=== PATIENT | female | born 1995 | race Caucasian/White ===

== ENCOUNTER 2024-03-01 13:04 | Outpatient (AMB) | payer OTHER, SELFPAY ==
--- NOTE | 2024-03-01 13:11 | A.OFFPC_ITS ---
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 Intake Note: New patient visit Allergies No Known Allergies Allergy (Verified 03/01/24 13:12) Medication List - Last Reconciled 03/01/24 by Hollie Martinez PA-C minoxidil 2.5 mg PO BID Tobacco use date assessed: 03/01/24 Dental Screening Dental Screen Date: 03/01/24 Did you have a dental visit in the last 12 months?: Yes Did you have a dental problem in the last 6 months where you did not have access to dental care?: No Was dental information given to patient?: Patient has dentist HPI 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 In the past year and a half, she has experienced a sensation of needing to crack her knees multiple times a day to alleviate discomfort. This discomfort is described as painful only when the knees need to crack or pop, but there is no pain with normal walking. Both knees are affected equally, though swelling or redness is absent. Occasionally, there is a report of the knees feeling like they might give out, but this is infrequent. The patient has no history of trauma to the knees or other inciting events and denies stiffness upon waking. No tick bites . The patient uses topical minoxidil for alopecia, a diagnosis confirmed by dermatology. There is no report of other chronic medical conditions or significant family history of similar musculoskeletal issues beyond her mother's arthritis. Her PHQ-9 is a 6 and her anxiety screening is positive. She states that this is not really bother her but at times she does feel tired. 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 Appears stated age. Cardiac: RRR, no murmurs Lungs: clear, equal breath sounds Abdomen: soft, nontender, no CVA tenderness Extremities: no edema, knees examined with no swelling or redness, stable with no pain during anterior and posterior draw test Neuro: alert, oriented x3, mood appropriate [facility] Surgical History (Updated 03/01/24 @ 13:23 by Lesia Lobato CMA) H/O wisdom tooth extraction H/O breast surgery Family History (Updated 03/01/24 @ 13:23 by Lesia Lobato CMA) Other Substance abuse Social History Housing: Apartment Patient Tobacco Use Status: Never used Tobacco e-Cigarette/Vaping Use: Never Used Second Hand Smoke Exposure: No service: No Current occupational status: employed 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 72177 - PHQ-9 Billing: Patient declined-do not bill Source: Developed by Drs. Bernard Mcgee, Filomena Butler, Cm Graff and colleagues, with an educational lópez from [employer]. Thrive Questionnaire I am a: Patient What is your living situation today?: I have a steady place to live Within the past 12 months, did the food you bought not last and you didn't have the money to get more?: Sometimes True Within the past 12 months, did you worry whether your food would run out before you got money to buy more?: Sometimes True Do you have trouble paying for medicines?: No Do you have trouble getting transportation to medical appointments?: No Do you have trouble paying your heating and electricity bill?: Yes Do you have trouble taking care of your child, family member or friend?: No Do you have trouble with day-to-day activities such as bathing, preparing meals, shopping, managing finances, etc.?: No Are you currently unemployed and looking for a job?: No Are you interested in more education?: Yes Please select the resources that you would like help with: None Currently or been in a relationship where the following occur: No concerns reported THRIVE Score: 3 AUDIT C Alcohol Use Questionnaire (AUDIT-C) 1. How often do you have a drink containing alcohol?: 2-4 times a month 2. How many drinks containing alcohol do you have on a typical day when you are drinking?: 1 or 2 3. How often do you have six or more drinks on one occasion?: Never Total Score: 2 Score Reviewed/Action Taken: Yes ELEUTERIO-7 AMB Questionnaire ELEUTERIO-7 Feeling nervous, anxious, or on edge: 2 = More than half the days Not being able to stop or control worryin = More than half the days Worrying too much about different things: 1 = Several days Trouble relaxin = Several days Being so restless that it is hard to sit still: 1 = Several days Becoming easily annoyed or irritable: 1 = Several days Feeling afraid as if something awful might happen: 1 = Several days Total ELEUTERIO-7 score (0-4 normal; 5-9 mild; 10-14 moderate; 15-21 severe): 9 Source: Developed by Drs. Bernard Mcgee, Filomena Butler, Cm Graff and colleagues, with an educational lópez from [employer]. ELEUTERIO-7 Assessment Billing ELEUTERIO-7 Assessment Tool: ELEUTERIO-7 Assessment 85588 Physical exam (Primary Care) PHQ-9: PHQ-9 Score PHQ-9: Total score 6 03/01/24 13:13 Currently or been in a relationship where the following occur: No concerns reported Coding Level of Care Code New Pt Level 3 (63225) Diagnoses Bilateral knee pain M25.561; M25.562 Additional Codes ELUETERIO-7 Assessment Billing - ELEUTREIO-7 Assessment Tool: ELEUTERIO-7 Assessment 29613 ([id number]) Assessment & Plan Assessment & Plan (1) Bilateral knee pain: Code(s): M25.561 - Pain in right knee; M25.562 - Pain in left knee Category: Medical Plan . Orders: Orders Complete Blood Count Auto Diff Today M25.561 - Pain in right knee, M25.562 - Pain in left knee, Z00.00 - Encounter for general adult medical examination without abnormal findings Lipid Panel Today M25.561 - Pain in right knee, M25.562 - Pain in left knee, Z00.00 - Encounter for general adult medical examination without abnormal findings TSH reflex Free T4 Today M25.561 - Pain in right knee, M25.562 - Pain in left knee, Z00.00 - Encounter for general adult medical examination without abnormal findings XR knee LT 2V Today M25.561 - Pain in right knee, M25.562 - Pain in left knee XR knee RT 2V Today M25.561 - Pain in right knee, M25.562 - Pain in left knee Comprehensive Kenneth. Panel Fast Today M25.561 - Pain in right knee, M25.562 - Pain in left knee, Z00.00 - Encounter for general adult medical examination without abnormal findings
[2024-03-01 13:23] VITALS: BP 112/74; PULSE 71; O2SAT 95; BMI 27.3
== END 2024-03-01 13:47 | disposition home or self-care (01) ==
PROVIDERS: Visit Provider Physician Assistant
DX: M25.561 Pain in right knee (principal); M25.562 Pain in left knee

== ENCOUNTER → 2024-03-01 13:04 | Outpatient (BNVA) | payer OTHER, SELFPAY | PROVIDERS: Visit Provider Physician Assistant | DX: Z00.00 Encounter for general adult medical examination without abnormal findings (principal); M25.561 Pain in right knee; M25.562 Pain in left knee | CPT/HCPCS: 96127; 99202 ==

== ENCOUNTER 2024-03-20 11:54 | Outpatient (REF) | payer OTHER, SELFPAY ==
[2024-03-20 12:18] LABS: MANUAL DIFF FLAG NO
[2024-03-20 12:28] LABS: Basophils Absolute Auto 0.1 X10*3/uL (0.0-0.2); Basophils Percent Auto 1.1 % (0-2); Eosinophils Absolute Auto 0.1 X10*3/uL (0.0-0.4); Eosinophils Percent Auto 1.1 % (0-4); Hematocrit 37.3 % (37.0-47.0); Hemoglobin 12.6 g/dl (12.0-16.0); Imm Gran Abs Auto 0.02 X10*3/uL (0.00-0.03); Imm Gran Pct Auto 0.3 % (0.0-0.4); Lymphocytes Absolute Auto 1.3 X10*3/uL (1.2-4.9); Lymphocytes Percent Auto 20.3 % (20-40); Mean Corpuscular HGB Conc 33.8 g/dl (31.0-35.0); Mean Corpuscular Hemoglobin 29.4 pg (27.0-33.0); Mean Corpuscular Volume 87.1 fL (80.0-98.0); Monocytes Absolute Auto 0.5 X10*3/uL (0.1-1.2); Monocytes Percent Auto 8.2 % (2-11); Neutrophils Absolute Auto 4.6 x10*3/uL (2.0-8.3); Platelet Count 271 X10*3/uL (160-400); Red Blood Count 4.28 X10*6/uL (4.20-5.50); Red Cell Distribution Width 12.5 % (11.0-16.0); White Blood Count 6.6 X10*3/uL (4.8-10.8)
[2024-03-20 13:15] LABS: Alanine Aminotransferase 13 U/L (0-31); Albumin Level 4.1 g/dL (3.5-5.0); Alkaline Phosphatase 58 U/L (39-117); Anion Gap 7 (12-20); Aspartate Amino Transferase 17 U/L (5-31); Bilirubin Total 0.7 mg/dL (0.0-1.0); Blood Urea Nitrogen 11 mg/dL (9-16); Calcium 9.1 mg/dL (8.4-10.2); Carbon Dioxide 25 mmol/L (22-29); Chloride 112 mmol/L (96-108); Cholesterol 120 mg/dL (<200); Estimated Glomerular Filt Rate > 60; Glucose Fasting 116 mg/dL (60-99); HDL Cholesterol 40 mg/dL (>40); LDL Cholesterol Calculated 65 mg/dL (<100); Potassium 4.3 mmol/L (3.3-5.1); Sodium 140 mmol/L (135-145); Total Protein 7.3 g/dL (6.5-8.0); Triglycerides 76 mg/dL (<150)
[2024-03-20 13:27] LABS: TSH reflex Free T4 0.59 uIU/mL (0.32-4.0)
== END 2024-03-20 11:55 | disposition home or self-care (01) ==
LOC: HO.LAB 11:54
PROVIDERS: PCP Physician Assistant; Visit Provider Physician Assistant
DX: Z00.00 Encounter for general adult medical examination without abnormal findings (principal); M25.561 Pain in right knee; M25.562 Pain in left knee
CPT/HCPCS: 36415; 80053; 80061; 84443; 85025

== ENCOUNTER 2024-03-22 16:45 | Outpatient (REF) | payer OTHER, SELFPAY ==
[2024-03-22 17:27] LABS: Estimated Average Glucose 103 mg/dL; Hemoglobin A1C 107.7199 umol/L; Hemoglobin A1c % 5.2 % (<6.0); Total Hemoglobin (HGBA1C) 3194.6369 umol/L
== END 2024-03-22 16:46 | disposition home or self-care (01) ==
LOC: HO.LAB 16:45
PROVIDERS: PCP Physician Assistant; Visit Provider Physician Assistant
DX: R73.01 Impaired fasting glucose (principal)
CPT/HCPCS: 36415; 83036

== ENCOUNTER 2024-04-18 12:58 | Outpatient (REF) | payer OTHER, SELFPAY ==
--- NOTE | ~2024-04-18 | XR_ITS ---
CLINICAL HISTORY: M17.11 - Unilateral primary osteoarthritis, right knee 2 view right knee Comparison: None Findings: Bones intact. No dislocations. No significant loss of joint space, osteophytes, or erosions. No joint effusion. No radiopaque foreign body. IMPRESSION: 1. No acute findings. This document has been electronically signed by: Dimitrios Osorio MD on 04/20/2024 08:50:17
--- NOTE | ~2024-04-18 | XR_ITS ---
CLINICAL HISTORY: M25.562 - Pain in left knee 3 view left knee Comparison: None Findings: Bones intact. No dislocations. No significant loss of joint space, osteophytes, or erosions. No joint effusion. No radiopaque foreign body. IMPRESSION: 1. No acute findings. This document has been electronically signed by: Dimitrios Osorio MD on 04/20/2024 08:49:40
--- OUTSIDE RECORDS SUMMARY | 2024-04-18 14:19 | XMS_ITS | Clinical Summary ---
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 Name Role Phone Unavailable Primary Care Provider Unavailabl e Source Comments PLEASE NOTE, if this patient is a minor, it may be UNLAWFUL to discuss sensitive information that is contained in these records (such as FAMILY PLANNING, MENTAL HEALTH or SUBSTANCE ABUSE) with the minor patient's parent or other person without the patient's specific authorization.[facility] Allergies No known active allergies Social History Tobacco Use Types Packs/Day Years Used Date Smoking Tobacco: Never Smokeless Tobacco: Never Tobacco Cessation:Counseling Given: Not Answered Social Connections Answer Date Recorded Connectedness 0 11/27/2023 Financial Resource Strain Answer Date R ecorded Financial Resource Strain 0 2023 Stress Answer Date Recorded Stress 0 05/26/2023 Physical Activity Answer Date Recorded Physical Activity 0 05/26/2023 Food Insecurity Answer Date Recorded Food 0 12/08/2023 Transportation Needs Answer Date Record ed Transportation 0 05/26/2023 Housing Stability Answer Date Recorded Housing 0 05/26/2023 Safety and Environment Answer Date Mert rded Safety 0 05/26/2023 Utilities Answer Date Recorded Utilities 0 05/26/2023 Employment Answer Date Recorded Stress 0 11/27/2023 Comments Unknown Sex and Gender Information Value Date Recorded Sex Assigned at Not on file Legal Sex Female 8:34 AM PDT Gender Identity Not on file Sexual Orientation Not on file Last Filed Vital Signs Vital Sign Reading Time Taken Comments Blood Pressure 110/75 10/06/2023 2:07 PM EDT Pulse 84 10/06/2023 2:07 PM EDT Temperature - - Respiratory Rate - - Oxygen Saturation - - Inhaled Oxygen Concentration - - Weight - - Height - - Body Mass Index - - Plan of Treatment Upcoming Encounters Date Type Department Care Team ([facility] st Contact Info) Description 07/09/2024 1:40 PM EDT Office Visit [facility] [address] [place] [address] Jamal Good [address] [place] [address] Health Maintenance Due Date Last Done Comments HPV Screening 1995 Hepatitis C Screening 1995 Pap + HPV 1995 HIV Screening 2010 Relationship Safety Screening/Counseling 2010 Imm-DTaP/Tdap/Td (1 - Tdap) 2014 Imm-Hepatitis B (1 of 3 - 19 + 3-dose series) 2014 Cervical Cancer Screening 2016 Pap Smear 2016 [id number] (2023- season) 2023 Imm-Influenza (#1) 2023 Alcohol and Drug Screen 03/14/2024 Depression Annual Screen 03/14/2024 Tobacco Screening 07/05/2024 07/06/2023 Dental Perio Charting 07/07/2024 07/06/2023 Dental BW 01/06/2025 01/05/2024, 07/06/2023 Dental Examination 01/06/2025 01/05/2024, 07/06/2023 Dental Prophy 01/06/2025 01/05/2024, 07/06/2023 Hypertension Screening (#1) 10/05/2026 Dental FMX/Pano 07/07/2028 07/06/2023 Cervical Ablation/Cold-Knife Conization Discontinued Cervical Cryotherapy Discontinued Colposcopy Discontinued Endometrial Biopsy Discontinued Excision/Leep Discontinued HPV Genotyping Discontinued Vaginal Pap Discontinued Vulvoscopy Discontinued Procedures Procedure Name Priority Date/Time Associated Diagnosis Comments BITEWINGS - FOUR RADIOGRAPHIC IMAGES Routine 01/05/2024 2:20 PM EDT Encounter for dental examination PROPHYLAXIS - ADULT Routine 01/05/2024 2 :20 PM EDT Encounter for dental examination PERIODIC ORAL EVALUATION ESTABLISHED PATIENT Routine 01/05/2024 2:20 PM EDT Encounter for dental examination INTRAORAL - COMP SERIES OF RADIOGRAPHIC IMAGES Routine 07/06/2023 4:20 PM EDT Encounter for dental examination and cleaning with abnormal findings Chronic gingivitis, plaque induced from Last 3 Months or Most Recently Relevant to Health Maintenance Insurance [employer] NET DENTAL DENTAL
--- OUTSIDE RECORDS SUMMARY | 2024-04-18 14:19 | XMS_ITS | Clinical Summary ---
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 Name Role Phone Unavailable Primary Care Provider Unavailabl e Social History Tobacco Use Types Packs/Day Years Used Date Smoking Tobacco: Never Assessed Sex and Gender Information Value Date Recorded Sex Assigned at Not on file Gender Identity Not on file Sexual Orientation Not on file Plan of Treatment Health Maintenance Due Date Last Done Comments DTaP,Tdap,and Td Vaccines (1 - Tdap) 2014 Hepatitis B Vaccines (1 of 3 - 19+ 3-dose series) 2014 Cervical Cancer Screening: P ap Smear 2016 Depression Screening 02/14/2022 HIV Screening 02/14/2022 Hepatitis C Screening 02/14/2022 Social Influencers of Health Screening 02/14/2022 COVID-19 Vaccine ( - 2023-2 5 season) 2023 Influenza Vaccine (#1) 2023 HIB Vaccines Aged Out No longer eligi ble based on patient's age to complete this topic HPV Vaccines Aged Out No longer eligi ble based on patient's age to complete this topic Hepatitis A Vaccines Aged Out No long er eligible based on patient's age to complete this topic IPV Vaccines Aged Out No longer eligi ble based on patient's age to complete this topic MMR Vaccines Aged Out No longer eligi ble based on patient's age to complete this topic Meningococcal ACWY Vaccine Aged Out N o longer eligible based on patient's age to complete this topic Pneumococcal Vaccine: Pediat rics (0 to 5 Years) and At-Risk Patients (6 to 64 Years) Aged Out No longer eligible b ased on patient's age to complete this topic RSV Immunization Patients Un aria 20 months Aged Out No longer eligible b ased on patient's age to complete this topic Varicella Vaccines Aged Out No longer eligible based on patient's age to complete this topic
== END 2024-04-18 12:59 | disposition home or self-care (01) ==
LOC: HO.HOSX 12:58
PROVIDERS: Visit Provider Physician Assistant
DX: M25.562 Pain in left knee (principal); M17.11 Unilateral primary osteoarthritis, right knee
CPT/HCPCS: 73562; 99202

== ENCOUNTER 2024-04-18 14:45 | Outpatient (AMB) | payer OTHER, SELFPAY ==
--- NOTE | 2024-04-18 15:11 | MHC.OFFVIS ---
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 Patient denies any known injuries or surgeries to her knees. She states pain is only present when she does not pop her knees. She has not tried anything for pain. 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 She has popping in the knee. This has been present for over a year. She states the pain is more of a discomfort around the patella and it feels like it is going to click and she needs to readjust the knee to allow it to move or pop. She has no discomfort with stairs no pain with bending or kneeling or squatting. She has no discomfort with prolonged standing. 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 Current occupational exposures/hazards: No Cognitive needs: No Hearing needs: No Vision needs: Yes (glasses) Review of Systems Const All systems reviewed & are unremarkable except as noted in HPI and below Physical Exam Vital Signs: BMI result Body Mass Index 28.3 Const General: cooperative and no acute distress Orientation/consciousness: patient oriented x3 Resp Effort & Inspection: normal respiratory effort and able to speak in complete sentences Cardio Peripheral pulses: Peripheral pulses 2+ throughout Neuro General: patient oriented x3 Extrem Other: Bilateral knee skin intact, no erythema or joint effusion. Mild Tenderness along the retropatellar region ROM full with crepitus. Negative steinmans. No ligamentous laxity. NVI. Results Reviewed Results Reviewed: X-rays of both knees obtained in the office today and reviewed by me show mild lateralization of the patella. Assessment & Plan Assessment & Plan (1) Chondromalacia of both patellae: Code(s): M22.41 - Chondromalacia patellae, right knee; M22.42 - Chondromalacia patellae, left knee Category: Medical Plan: We discussed options today which include physical therapy to help with strengthening exercises. I also fit her for a Genumed knee brace while in the office today. She will avoid activities that cause discomfort and if symptoms persist or worsen she can contact our office otherwise follow up as needed. Orders: Orders PT Evaluation and Treatment Today M22.41 - Chondromalacia patellae, right knee, M22.42 - Chondromalacia patellae, left knee XR knee RT 3V Today M17.11 - Unilateral primary osteoarthritis, right knee XR knee LT 3V Today M25.562 - Pain in left knee Coding Level of Care Code New Pt Level 3 (76404) Complex EM visit Add On G2211 Diagnoses Chondromalacia of both patellae M22.41; M22.42
[2024-04-18 15:12] VITALS: BMI 28.3
== END 2024-04-18 15:30 | disposition home or self-care (01) ==
PROVIDERS: PCP Physician Assistant; Visit Provider Physician Assistant
DX: M22.41 Chondromalacia patellae, right knee (principal); M22.42 Chondromalacia patellae, left knee
CPT/HCPCS: 99203

== ENCOUNTER → 2024-04-18 15:01 | Outpatient (BNV) | payer OTHER, SELFPAY | PROVIDERS: Visit Provider Specialist | DX: M25.562 Pain in left knee (principal); M17.11 Unilateral primary osteoarthritis, right knee | CPT/HCPCS: 73560; 73562 ==

== ENCOUNTER 2024-07-05 12:56 | Outpatient (RCR) | payer OTHER, SELFPAY ==
--- NOTE | 2024-05-09 14:47 | MHC.PT.EP ---
[facility] [place] [facility] [place] Office [place] Office [address] Aide [place] [address] [phone] F: [phone] F: [phone] F: [phone] F: [phone] Physical Therapy Plan of Care Date of Evaluation: 05/09/24 Date of Surgery: NA Diagnosis: KNEE PAIN (KP) Assessment: LIBERTY IS A 29 YO FEMALE WHO PRESENTS WITH APROX 1-2 YEAR H/O KNEE PAIN AND POPPING . PCP WAS NOT CONCERNED AT THAT TIME, RECENTLY WAS SEEN BY NEW PROVIDER WHO REFFERED TO ORTHO AND TO PT. REPORTS NO MECHANISM OF INJURY. 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 STATES SHE FREQUENTLY FEELS THE KNEES NEED TO CRACK AND FEELS TENSION AND TIGHTNESS WITH LONG PERIODS OF STANDING OR SITTING. SHE STATES IF SHE SITS OR STANDS FOR TOO LONG SHE FEELS IT NEEDS TO POP , IF SHE DOESN'T POP IT THEN PAIN WILL INCREASE SLIGHTLY. REPORTS NEEDING TO PERFORM THIS 5-8 X DAY. SENSATION IN IN PERIPATTELAR REGION AND LATERAL KNEE R>L. LIVES ON SECOND FLOOR AND WITH REPEATED STAIR CLIMBING, AT REST AND WITH SHORT PERIODS OF ACTIVITY DOES NOT FEEL KNEE NEEDS TO POP/NO PAIN. ISSUED KNEE KNEE BRACES FROM ORTHO, WEARING THEM INTERMITTENTLY. REPORTS BRACE CAUSES KNEE TO CRACK LESS BUT INCREASES STIFFNESS. UPON EXAM IMPAIRMENTS INCLUDE DECREASED KNEE FLEXION ROM AND DECREASED HIP ROTATION, DECREASED HIP AND LE STRENGTH, ALTERED GAIT, INCREASED TISSUE TENSION AND INCREASED DISCOMFORT. FUNCTIONAL LIMITATIONS INCLUDE DECREASED TOLERANCE TO STATIC STANDING, PROLONGED SITTING, DECREASED TOLERANCE TO STAIR NEGOTIATION. SHE REPORTS DECREASED PARTICIPATION IN FITNESS AND RECREATIONAL ACTIVITIES. Frequency and Duration: The patient will be seen 2 X WEEK FOR 3 WEEKS Short Term Goals: INITIATE HEP AND PROMOTE SELF MANAGEMENT OF SYMPTOMS Correction Goals: FULL LE STRENGTH, EQUAL DALE FULL LE ROM, EQUAL DALE WITH KNEE FLEXION A MINIMUM OF 120 DALE FULL, PAINFREE FUNCTIONAL SQUAT INDEPENDENT HOME PROGRAM AND SELF MANAGEMENT OF SYMPTOMS Treatment Plan: Modalities to reduce pain, spasms and effusion. Manual therapy to restore motion and function. Therapeutic exercise to improve strength and flexibility. Neuromuscular re-education for posture and balance. Therapeutic activities to return to functional activities of daily living. Electronically signed by: KATY GARNETT PT DPT Please sign and return to therapist. Thank you for your referral.
--- NOTE | 2024-07-23 13:43 | MHC.PT.DC ---
[facility] [place] Office [place] Office [place] Office [address] Aide [place] [address] [phone] F: [phone] F: [phone] F: [phone] F: [phone] Physical Therapy Discharge Report Diagnosis: KNEE PAIN (KP) Date of Surgery: NA Date of Evaluation: 05/09/24 Date of Discharge: 07/05/24 Treatments to Date: 13 Cancellations to Date: 4 No Shows to Date: 0 Discharge Status: Improved Function Independent with HEP Discharge Summary: 07/05 pt continues to experience sensation of popping and out of place Pt encouraged to continue strengthening program to justin for help with stability. Advised pt to follow up with her MD. D/C to HEP today per plan. Electronically signed by: Meeta Longo PT DPT Please sign and return to therapist. Thank you for your referral.
== END 2024-07-23 13:43 | disposition home or self-care (01) ==
LOC: HO.PT 12:56
PROVIDERS: PCP Physician Assistant; Visit Provider Physician Assistant
DX: M22.41 Chondromalacia patellae, right knee (principal); M22.42 Chondromalacia patellae, left knee
CPT/HCPCS: 97110; 97140; 97161; 97530